=== PATIENT | male | born 2000 | race Caucasian/White ===

== ENCOUNTER 2022-06-08 09:19 | Outpatient (CLI) | payer OTHER, SELFPAY ==
[2022-06-08 14:11] LABS: Albumin* 4.4 g/dL (3.3-5.0)
[2022-06-08 14:14] LABS: Alkaline Phosphatase* 62 U/L (40-150); Aspartate Amino Transferase* 49 U/L (12-35); Bilirubin Direct* 0.2 mg/dL (0.0-0.5); Bilirubin Total* 0.5 mg/dL (0.1-1.5); Cholesterol* 118 mg/dL (90-199); HDL Cholesterol* 70 mg/dL (>=40); LDL Cholesterol Calculated 29 mg/dL (<100); Triglycerides* 97 mg/dL (40-149)
[2022-06-08 14:15] LABS: Alanine Aminotransferase* 35 U/L (4-50)
== END 2022-06-08 09:20 | disposition home or self-care (01) ==
PROVIDERS: Visit Provider Dermatology
DX: L70.9 Acne, unspecified (principal); Z79.899 Other long term (current) drug therapy
CPT/HCPCS: 80061; 80076; 82465